=== PATIENT | male | born 1940 | race Caucasian/White ===

== ENCOUNTER 2016-08-06 07:48 | Inpatient (IN) | payer MEDICARE ==
[2016-08-06] MEDS ORDERED: METHYLPREDNISOLONE INJ 125 MG/2 ML SDV IV ONE (08:36)
--- NOTE | 2016-08-06 08:36 | ER Document Report ---
ED Respiratory Problem - General Mode of Arrival: Ambulatory Information source: Patient TRAVEL OUTSIDE OF THE [place] IN LAST 30 DAYS: No - HPI Patient complains to provider of: Short of breath Associated symptoms: Other - See above <GAMALIEL ROSALES - Last Filed: 08/06/16 12:56> <JOE WOLFF - Last Filed: 08/06/16 15:30> - General Chief Complaint: Shortness Of Breath Stated Complaint: shortness of breath Time Seen by Provider: 08/06/16 08:15 Notes: Patient is a 75 year old male, with a past medical history including COPD and HTN, who presents to the emergency department complaining of shortness of breath onset last week. Patient reports his symptoms began as a runny nose after which he contacted his PCP by phone and was prescribed antibiotics and steroids which he took for 5 days and has been off for about 5 days not but his symptoms have worsened. Patient reports he is on home oxygen as needed, usually when he sleeps. Patient states that he took a breathing treatment this morning as well as his respiratory medicines and Albuterol. Patient reports he does usually have allergy problems but does not take allergy meds. Patient denies fever, nausea, vomiting, diarrhea, and edema. Patient denies any history of cardiac problems and has not had stress test performed. (GAMALIEL ROSALES) - Related Data Allergies/Adverse Reactions: Penicillins Allergy (Unknown, Verified 08/06/16 07:56) Home Medications: Current Home Medications Albuterol Sulfate [Ventolin Hfa] 2 puff IH Q4HP PRN 08/06/16 [History] Amlodipine Besylate [Norvasc 10 mg Tablet] 10 mg PO DAILY 08/06/16 [History] Atorvastatin Calcium [Lipitor 40 mg Tablet] 40 mg PO QHS 08/06/16 [History] Benzonatate [Tessalon Perles 100 mg Capsule] 100 mg PO Q8HP PRN 08/06/16 [ History] Fluticasone/Salmeterol [Advair 250-50 Diskus 14 Dose/Diskus] 1 inh IH Q12 [History] Lisinopril [Prinivil 40 mg Tablet] 40 mg PO QHS 08/06/16 [History] Prednisone [Deltasone 5 mg Tablet] 5 mg PO ASDIR PRN 08/06/16 [History] Tamsulosin HCl [Flomax] 0.4 mg PO DAILY 08/06/16 [History] Tiotropium [place] [Spiriva Handihaler 5 Cap/Kit (18 Mcg/Cap)] 1 cap IH DAILY [History] Past Medical History - General Information source: Patient - Social History Smoking Status: Unknown if Ever Smoked Family History: Reviewed & Not Pertinent Patient has suicidal ideation: No Patient has homicidal ideation: No - Past Medical History Cardiac Medical History: Reports: Hx Hypercholesterolemia, Hx Hypertension Pulmonary Medical History: Reports: Hx Asthma - COPD, Hx COPD <GAMALIEL ROSALES - Last Filed: 08/06/16 12:56> Review of Systems - Review of Systems Constitutional: No symptoms reported. denies: Fever EENT: See HPI, Nose congestion Cardiovascular: No symptoms reported. denies: Edema Respiratory: See HPI, Short of breath Gastrointestinal: No symptoms reported. denies: Diarrhea, Nausea, Vomiting Genitourinary: No symptoms reported Male Genitourinary: No symptoms reported Musculoskeletal: No symptoms reported Skin: No symptoms reported Hematologic/Lymphatic: No symptoms reported Neurological/Psychological: No symptoms reported -: Yes All other systems reviewed and negative <GAMALIEL ROSALES - Last Filed: 08/06/16 12:56> Physical Exam - Vital signs Interpretation: Normal - General General appearance: Alert - HEENT Head: Normocephalic, Atraumatic - Respiratory Respiratory status: No respiratory distress Chest status: Nontender Breath sounds: Wheezing - bilateral bases, Other - tight Chest palpation: Normal - Cardiovascular Rhythm: Regular Heart sounds: Normal auscultation Murmur: No Pulses: Normal: Brachial - Back Back: Normal, Nontender - Extremities General upper extremity: Normal inspection General lower extremity: Normal inspection - Neurological Neuro grossly intact: Yes Cognition: Normal Orientation: AAOx4 Mark Coma Scale Eye Opening: Spontaneous Mark Coma Scale Verbal: Oriented [place] Coma Scale Motor: Obeys Commands Mark Coma Scale Total: 15 Speech: Normal - Psychological Associated symptoms: Normal affect, Normal mood - Skin Skin Temperature: Warm Skin Moisture: Dry Skin Color: Normal <GAMALIEL ROSALES - Last Filed: 08/06/16 12:56> Course - Laboratory Result Diagrams: 08/06/16 08:30 08/06/16 08:30 - Consults Dr. Rdz Time consulted: 12:35 - Will admit <GAMALIEL ROSALES - Last Filed: 08/06/16 12:56> - Laboratory Result Diagrams: 08/06/16 08:30 08/06/16 08:30 <JOE WOLFF - Last Filed: 08/06/16 15:30> - Re-evaluation Re-evalutation: 08/06/16 12:03 Patient with history of COPD and asthma presents emergency department 1 week history of increased cough wheezing and difficulty breathing. They called Dr. 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 He feels like he needs to cough something up but is unable to. He is also had a lot of sinus congestion drainage down the back of his throat and a dry hacking cough. He denies any known history of heart attack PE dissection or aneurysm. Also states that allergies are bothering him currently. States that he has not oxygen as needed constantly at night. On examination he is awake alert he is not hypoxic on room air is 94-95 % no acute respiratory distress he is very tight with expiratory wheezes. Chest x-ray is negative EKG is stable negative acute labs and cardiac enzymes other than white count elevation which I believe is due to the steroids that the patient has been taking. Given albuterol Atrovent IV Solu-Medrol and 2 g of magnesium. Reassess at the bedside he says he feels 100% better and wants to go home. He is not hypoxic is not in any respiratory distress. From a follow-up with Dr. Green on Monday primary care physician in 2-3 days and discussed reasons for ED return sooner I personally performed the services described in the documentation, reviewed and edited the documentation which was dictated to my scribe in my presence, and accurately records my words and actions. 08/06/16 12:38 Patient was getting ready to be discharged to go the bathroom and increasing shortness of breath and wheezing again at this point I contacted the hospitalist who is going to admit the patient to the hospital for COPD asthma exacerbation likely inpatient consultation of Dr. Green pulmonology. (JOE WOLFF) - Vital Signs Vital signs: Temp Pulse Resp BP Pulse Ox 98.8 F 110 H 25 H 125/56 L 91 L 08/06/16 12:15 08/06/16 07:53 08/06/16 12:14 08/06/16 12:14 08/06/16 12:14 - Laboratory Laboratory results interpreted by me: 08/06/16 08/06/16 08/06/16 08:30 08:30 09:45 WBC 20.6 H RDW 14.2 H Seg Neuts % (Manual) 83 H Band Neutrophils % 1 L Lymphocytes % (Manual) 9 L Abs Neuts (Manual) 17.3 H ABG pH 7.49 H ABG pO2 63.8 L ABG HCO3 28.3 H ABG Total CO2 29.5 H ABG O2 Saturation 93.9 L Sodium 146.2 H BUN 23 H Glucose 115 H - EKG Interpretation by Me Additional EKG results interpreted by me: 08/06/16 12:05 EKG interpreted by myself to reveal sinus tachycardia at [address] segment elevation or depression (JOE WOLFF) Critical Care Note - Critical Care Note Total time excluding time spent on procedures (mins): 55 <JOE WOLFF - Last Filed: 08/06/16 15:30> Discharge <GAMALIEL ROSALES - Last Filed: 08/06/16 12:56> - Discharge Admitting Provider: Hospitalist Unit Admitted: Medical Floor <JOE WOLFF - Last Filed: 08/06/16 15:30> - Discharge Clinical Impression: COPD exacerbation, Asthma exacerbation Condition: Stable Disposition: HOME, SELF-CARE Scribe Attestation: 08/06/16 12:02 I personally performed the services described in the documentation reviewed the documentation recorded by my scribe in my presence and it accurately and completely records my words and actions (JOE WOLFF) Scribe Documentation - Scribe Written by Karen:: karen Stoddard, 08/06/16, 0904 acting as scribe for :: Rashaun <GAMALIEL ROSAELS - Last Filed: 08/06/16 12:56>
[2016-08-06 09:15] LABS: HEMATOCRIT 41.5 % (37.9-51.0); HEMOGLOBIN 13.7 g/dL (13.5-17.0); HGB HCT DIFFERENCE -0.4; MEAN CORPUSCULAR HEMOGLOBIN 28.9 pg (27.0-33.4); MEAN CORPUSCULAR VOLUME 88 fl (80-97); RED BLOOD COUNT 4.74 10^6/uL (4.35-5.55); RED CELL DISTRIBUTION WIDTH 14.2 % (11.5-14.0); WHITE BLOOD COUNT 20.6 10^3/uL (4.0-10.5)
[2016-08-06] MEDS: MAGNESIUM SULFATE/D5W 100 ML IV SCH ×2 (09:22→10:10)
[2016-08-06 09:23] LABS: ANION GAP 14 (5-19); BLOOD UREA NITROGEN 23 mg/dL (7-20); CALCIUM 9.8 mg/dL (8.4-10.2); CARBON DIOXIDE 28 mmol/L (22-30); CHLORIDE 104 mmol/L (98-107); CREATINE KINASE 66 U/L (55-170); CREATININE RESULT 0.98 mg/dL (0.52-1.25); GLUCOSE 115 mg/dL (75-110); POTASSIUM 4.1 mmol/L (3.6-5.0); SODIUM 146.2 mmol/L (137-145)
[2016-08-06 09:35] LABS: BAND NEUTROPHILS % (MANUAL) 1 % (3-5); BASOPHILS % (MANUAL) 0 % (0-2); EOSINOPHILS % (MANUAL) 0 % (0-6); LYMPHOCYTES % (MANUAL) 9 % (13-45); TOTAL CELLS COUNTED 100
[2016-08-06 09:36] LABS: RBC MORPHOLOGY COMMENT NORMO-CYTIC/CHROMIC
[2016-08-06 09:40] LABS: TROPONIN I < 0.012 ng/mL
[2016-08-06] MEDS ORDERED: ALBUTEROL SULFATE 0.083% NEB 2.5 MG/3 ML AMPUL NEB ONE (10:01)
[2016-08-06] MEDS ORDERED: IPRATROPIUM BROMIDE 0.02% NEB 0.5 MG/2.5 ML AMPUL NEB PRN (10:02)
[2016-08-06 10:12] LABS: ARTERIAL BLOOD BASE EXCESS 4.8 mmol/L; ARTERIAL BLOOD O2 SATURATION 93.9 % (94-98)
[2016-08-06] MEDS ORDERED: OXYCODONE-ACETAMINOPHEN 5-325 MG TABLET PO PRN (13:12)
[2016-08-06] MEDS ORDERED: ONDANSETRON HCL INJ/PF 4 MG/2 ML SDV IV PRN (13:12)
[2016-08-06] MEDS ORDERED: MAGNESIUM HYDROXIDE SUSP 30 ML UDCUP PO PRN (13:12)
[2016-08-06] MEDS ORDERED: ACETAMINOPHEN 325 MG TABLET PO PRN (13:12)
--- NOTE | 2016-08-06 13:47 | PDOC H&P ---
History of Present Illness Admission Date/PCP: 08/06/16 13:29 RODRIGUEZ CHAMBERLAIN MD pulm - dr chamberlain Patient complains of: difficulty breathing History of Present Illness: CHARLA LEVY is a 75 year old male presents to the ED from home with 5d hx of worsening dyspnea, nonproductive cough, increasing nasal drainage, sore throat, wheezing and exertional fatigue and dyspnea. He was placed on zpak and predpak 5d but did not feel any better and presented to ED today. he denies chest pain, palpitatoins, swelling of his feet, orthopnea, PND, abd pain, N/v/d , fevers or chills. eval in ED confirms a COPD exac and we were asked to admit for further eval and management. Past Medical History Cardiac Medical History: Reports: Hyperlipidema, Hypertension Denies: Myocardial Infarction Pulmonary Medical History: Reports: Asthma - COPD, Chronic Obstructive Pulmonary Disease (COPD), Pneumonia Neurological Medical History: Denies: Seizures GI Medical History: Denies: Hepatitis, Hiatal Hernia Hematology: Denies: Anemia, Sickle Cell Disease Past Surgical History Past Surgical History: Denies: Pacemaker Social History Information Source: Patient Smoking Status: Former Smoker - quit 7yrs ago Frequency of Alcohol Use: None Hx Recreational Drug Use: No Drugs: None Family History Family History: CAD Parental Family History Reviewed: Yes Children Family History Reviewed: Yes Sibling(s) Family History Reviewed.: Yes Medication/Allergy Home Medications: Albuterol Sulfate [Ventolin Hfa] 2 puff IH Q4HP PRN 08/06/16 Amlodipine Besylate [Norvasc 10 mg Tablet] 10 mg PO DAILY 08/06/16 Atorvastatin Calcium [Lipitor 40 mg Tablet] 40 mg PO QHS 08/06/16 Benzonatate [Tessalon Perles 100 mg Capsule] 100 mg PO Q8HP PRN 08/06/16 Fluticasone/Salmeterol [Advair 250-50 Diskus 14 Dose/Diskus] 1 inh IH Q12 Lisinopril [Prinivil 40 mg Tablet] 40 mg PO QHS 08/06/16 Prednisone [Deltasone 5 mg Tablet] 5 mg PO ASDIR PRN 08/06/16 Tamsulosin HCl [Flomax] 0.4 mg PO DAILY 08/06/16 Tiotropium [place] [Spiriva Handihaler 5 Cap/Kit (18 Mcg/Cap)] 1 cap IH DAILY Allergies/Adverse Reactions: Penicillins Allergy (Unknown, Verified 08/06/16 07:56) Review of Systems Constitutional: ABSENT: chills, fever(s), headache(s), weight gain, weight loss Eyes: ABSENT: visual disturbances Ears: ABSENT: hearing changes Cardiovascular: ABSENT: chest pain, dyspnea on exertion, edema, orthropnea, palpitations Respiratory: PRESENT: as per HPI, cough, dyspnea. ABSENT: hemoptysis, sputum Gastrointestinal: ABSENT: abdominal pain, constipation, diarrhea, hematemesis, hematochezia, nausea, vomiting Genitourinary: ABSENT: dysuria, hematuria Musculoskeletal: ABSENT: joint swelling Integumentary: ABSENT: rash, wounds Neurological: ABSENT: abnormal gait, abnormal speech, confusion, dizziness, focal weakness, syncope Psychiatric: ABSENT: anxiety, depression, homidical ideation, suicidal ideation Endocrine: ABSENT: cold intolerance, heat intolerance, polydipsia, polyuria Hematologic/Lymphatic: ABSENT: easy bleeding, easy bruising Physical Exam Vital Signs: Temp Pulse Resp BP Pulse Ox 98.8 F 110 H 25 H 125/56 L 91 L 08/06/16 12:15 08/06/16 07:53 08/06/16 12:14 08/06/16 12:14 08/06/16 12:14 General appearance: PRESENT: no acute distress, cooperative, well-developed, well-nourished Head exam: PRESENT: atraumatic, normocephalic Eye exam: PRESENT: EOMI. ABSENT: scleral icterus Mouth exam: PRESENT: moist, neck supple Neck exam: ABSENT: JVD, tracheal deviation Respiratory exam: PRESENT: unlabored. ABSENT: accessory muscle use, wheezes - just coarse throughout Cardiovascular exam: PRESENT: RRR. ABSENT: systolic murmur Pulses: PRESENT: normal carotid pulses, normal radial pulses GI/Abdominal exam: PRESENT: normal bowel sounds, soft. ABSENT: guarding, rebound, rigid, tenderness Extremities exam: ABSENT: calf tenderness - no palp cords, joint swelling, pedal edema Musculoskeletal exam: PRESENT: ambulatory, full ROM Neurological exam: PRESENT: alert, awake, oriented to person, oriented to place , oriented to time, oriented to situation Psychiatric exam: PRESENT: appropriate affect, normal mood Skin exam: PRESENT: dry, warm Results Laboratory Results: labs reviewed - leukocytosis and hypoxia noted EKG Comments: sinus tach, no ischemic changes Impressions: Chest X-Ray 08/06/16 08:16 IMPRESSION: COPD. NO ACUTE RADIOGRAPHIC FINDING IN THE CHEST. Status: Imported from PACS Assessment & Plan - Diagnosis (1) Acute bacterial bronchitis Is this a current diagnosis for this admission?: YesPlan: admit for empiric abx (2) COPD exacerbation Is this a current diagnosis for this admission?: YesPlan: systemic steroids and scheduled/prn nebs; supplemental O2 as needed (3) Acute respiratory failure with hypoxia Is this a current diagnosis for this admission?: YesPlan: evidenced by low PaO2 on ABG; as above (4) Sepsis Qualifiers: Sepsis type: sepsis due to unspecified organism Qualified Code(s): A41.9 - Sepsis, unspecified organism Is this a current diagnosis for this admission?: YesPlan: evidence by tachycardia, hypoxia, leukocytosis and source; treat as above (5) HTN (hypertension) Qualifiers: Hypertension type: essential hypertension Qualified Code(s): I10 - Essential (primary) hypertension Is this a current diagnosis for this admission?: YesPlan: resume home regimen - Time Time Spent: 50 to 70 Minutes Medications reviewed and adjusted accordingly: Yes Anticipated discharge: Home Within: within 48 hours - Inpatient Certification Medical Necessity: Failure to Improve With Outpatient Therapy, Significant Comorbidiites Make Outpatient Treatment Too Risky, Need for Nebulizer Therapy and Monitoring of Response, Risk of Complication if Not Cared For in Hospital
[2016-08-06] MEDS: IPRATROPIUM/ALBUTEROL 0.5-2.5 MG/3 ML AMPUL NEB SCH ×2 (14:15→19:31)
[2016-08-06] MEDS ORDERED: TAMSULOSIN HCL 0.4 MG CAP.SR.24H PO ONE (16:00)
[2016-08-06] MEDS ORDERED: AMLODIPINE BESYLATE 10 MG TABLET PO ONE (16:00)
--- NOTE | 2016-08-06 17:48 | EKG REPORT ---
SEVERITY:- ABNORMAL ECG - SINUS TACHYCARDIA ABNRM R PROG, CONSIDER ASMI OR LEAD PLACEMENT : Confirmed by: Slime Fields MD 06-Aug-2016 17:48:06
[2016-08-06] MEDS: FAMOTIDINE 20 MG TABLET PO SCH (23:47)
[2016-08-06] MEDS: ATORVASTATIN CALCIUM 40 MG TABLET PO SCH (23:47)
[2016-08-06] MEDS: LISINOPRIL 10 MG TABLET PO SCH (23:48)
[2016-08-06] MEDS: DOXYCYCLINE HYCLATE 100 MG TABLET PO SCH (23:49)
[2016-08-06] MEDS: METHYLPREDNISOLONE INJ 40 MG/1 ML SDV IV SCH (23:49)
[2016-08-06] MEDS: FLUTICASONE/SALMETEROL DISKUS 250-50 MCG/DOSE IH SCH (23:50)
[2016-08-07 04:56] LABS: HEMATOCRIT 39.8 % (37.9-51.0); HGB HCT DIFFERENCE -0.8; MEAN CORPUSCULAR HEMOGLOBIN 28.9 pg (27.0-33.4); MEAN CORPUSCULAR HGB CONC 32.7 g/dL (32.0-36.0); MEAN CORPUSCULAR VOLUME 89 fl (80-97); WHITE BLOOD COUNT 20.5 10^3/uL (4.0-10.5)
[2016-08-07 05:15] LABS: BAND NEUTROPHILS % (MANUAL) 1 % (3-5); BASOPHILS % (MANUAL) 0 % (0-2); EOSINOPHILS % (MANUAL) 0 % (0-6); LYMPHOCYTES % (MANUAL) 4 % (13-45); TOTAL CELLS COUNTED 100
[2016-08-07 05:18] LABS: ANISOCYTOSIS SLIGHT; OVALOCYTES SLIGHT; POIKILOCYTOSIS SLIGHT
[2016-08-07] MEDS: IPRATROPIUM/ALBUTEROL 0.5-2.5 MG/3 ML AMPUL NEB SCH (08:05)
[2016-08-07] MEDS: METHYLPREDNISOLONE INJ 40 MG/1 ML SDV IV SCH ×2 (09:39→22:42)
[2016-08-07] MEDS: TAMSULOSIN HCL 0.4 MG CAP.SR.24H PO SCH (09:39)
[2016-08-07] MEDS: FLUTICASONE/SALMETEROL DISKUS 250-50 MCG/DOSE IH SCH ×2 (09:39→22:46)
[2016-08-07] MEDS: AMLODIPINE BESYLATE 10 MG TABLET PO SCH (09:40)
[2016-08-07] MEDS: FAMOTIDINE 20 MG TABLET PO SCH ×2 (09:40→22:39)
[2016-08-07] MEDS: GUAIFENESIN 600 MG TABLET.SA PO SCH ×2 (10:31→22:40)
[2016-08-07] MEDS: DOXYCYCLINE HYCLATE 100 MG TABLET PO SCH ×2 (10:31→22:40)
--- NOTE | 2016-08-07 10:52 | PDOC PROGRESS REPORT ---
Subjective Progress Note for:: 08/07/16 Subjective:: reason for visit: f/u COPD exac hospital course: CHARLA LEVY is a 75 year old male presents to the ED from home with 5d hx of worsening dyspnea, nonproductive cough, increasing nasal drainage, sore throat, wheezing and exertional fatigue and dyspnea. He was placed on zpak and predpak 5d but did not feel any better and presented to ED today. he denies chest pain, palpitatoins, swelling of his feet, orthopnea, PND, abd pain, N/v/d, fevers or chills. eval in ED confirms a COPD exac and we were asked to admit for further eval and management. some improvement with tx but not back to baseline, still extremely SOA with minimal exertion, non productive cough. ROS: denies chest pain, palpitations, N/V/D, DANIEL,dizziness, total 10 systems reviewed and remaining systems negative Physical Exam Vital Signs: Temp Pulse Resp BP Pulse Ox 97.9 F 75 18 149/70 H 92 08/07/16 07:42 08/07/16 08:05 08/07/16 08:05 08/07/16 07:42 08/07/16 08:05 Intake & Output 08/06/16 08/07/16 08/08/16 06:59 06:59 06:59 Intake Total 248 Output Total 800 Balance -552 Weight 84.4 kg General appearance: PRESENT: no acute distress, well-developed, well-nourished Head exam: PRESENT: atraumatic, normocephalic Eye exam: ABSENT: conjunctival injection, scleral icterus Mouth exam: PRESENT: moist, neck supple Neck exam: PRESENT: full ROM. ABSENT: JVD Respiratory exam: PRESENT: crackles, rhonchi, wheezes. ABSENT: accessory muscle use, unlabored Cardiovascular exam: PRESENT: RRR. ABSENT: systolic murmur Pulses: PRESENT: normal radial pulses Vascular exam: PRESENT: normal capillary refill GI/Abdominal exam: PRESENT: normal bowel sounds, soft. ABSENT: tenderness Extremities exam: ABSENT: calf tenderness, pedal edema Musculoskeletal exam: PRESENT: ambulatory, full ROM Neurological exam: PRESENT: alert, awake, oriented to person, oriented to place , oriented to time, oriented to situation Psychiatric exam: PRESENT: appropriate affect, normal mood Results Laboratory Results: 08/07/16 03:53 08/07/16 03:53 WBC 20.5 H RBC 4.50 Hgb 13.0 L Hct 39.8 MCV 89 MCH 28.9 MCHC 32.7 RDW 14.0 Plt Count 239 Seg Neutrophils % Not Reportable Lymphocytes % Not Reportable Monocytes % Not Reportable Eosinophils % Not Reportable Basophils % Not Reportable Absolute Neutrophils Not Reportable Absolute Lymphocytes Not Reportable Absolute Monocytes Not Reportable Absolute Eosinophils Not Reportable Absolute Basophils Not Reportable Assessment & Plan - Diagnosis (1) Acute bacterial bronchitis Is this a current diagnosis for this admission?: YesPlan: improved but not back to baseline, continue empiric abx (2) COPD exacerbation Is this a current diagnosis for this admission?: YesPlan: unchanged; continue systemic steroids, encouraged to increase activity. add flutter valve and mucolytic and monitor for response (3) Acute respiratory failure with hypoxia Is this a current diagnosis for this admission?: YesPlan: improved but not back to baseline. as above (4) Sepsis Qualifiers: Sepsis type: sepsis due to unspecified organism Qualified Code(s): A41.9 - Sepsis, unspecified organism Is this a current diagnosis for this admission?: YesPlan: unchanged; evidence by tachycardia, hypoxia, leukocytosis and source; treat as above (5) HTN (hypertension) Qualifiers: Hypertension type: essential hypertension Qualified Code(s): I10 - Essential (primary) hypertension Is this a current diagnosis for this admission?: Yes - Time Time Spent with patient: 25-34 minutes Medications reviewed and adjusted accordingly: Yes Anticipated discharge: Home Within: within 48 hours
[2016-08-07] MEDS: ALBUTEROL SULFATE 0.083% NEB 2.5 MG/3 ML AMPUL NEB PRN ×2 (14:06→20:01)
[2016-08-07] MEDS: ATORVASTATIN CALCIUM 40 MG TABLET PO SCH (22:39)
[2016-08-07] MEDS: LISINOPRIL 10 MG TABLET PO SCH (22:40)
[2016-08-08] MEDS: ALBUTEROL SULFATE 0.083% NEB 2.5 MG/3 ML AMPUL NEB PRN ×3 (06:35→20:21)
[2016-08-08] MEDS ORDERED: ONDANSETRON HCL INJ/PF 4 MG/2 ML SDV IV PRN (09:00)
[2016-08-08] MEDS: AMLODIPINE BESYLATE 10 MG TABLET PO SCH (09:27)
[2016-08-08] MEDS: TAMSULOSIN HCL 0.4 MG CAP.SR.24H PO SCH (09:27)
[2016-08-08] MEDS: FAMOTIDINE 20 MG TABLET PO SCH ×2 (09:28→23:01)
[2016-08-08] MEDS: GUAIFENESIN 600 MG TABLET.SA PO SCH ×2 (09:28→23:01)
[2016-08-08] MEDS: METHYLPREDNISOLONE INJ 40 MG/1 ML SDV IV SCH ×2 (09:28→23:06)
[2016-08-08] MEDS: DOXYCYCLINE HYCLATE 100 MG TABLET PO SCH (09:29)
[2016-08-08] MEDS: FLUTICASONE/SALMETEROL DISKUS 250-50 MCG/DOSE IH SCH ×2 (09:29→23:04)
[2016-08-08] MEDS ORDERED: LEVOFLOXACIN 750 MG/D5W RTU 750 MG/150 ML RTUPB IV ONE (11:00)
--- NOTE | 2016-08-08 11:25 | PDOC PROGRESS REPORT ---
Subjective Progress Note for:: 08/08/16 Subjective:: reason for visit: f/u COPD exac hospital course: CHARLA LEVY is a 75 year old male presents to the ED from home with 5d hx of worsening dyspnea, nonproductive cough, increasing nasal drainage, sore throat, wheezing and exertional fatigue and dyspnea. He was placed on zpak and predpak 5d but did not feel any better and presented to ED today. he denies chest pain, palpitatoins, swelling of his feet, orthopnea, PND, abd pain, N/v/d, fevers or chills. eval in ED confirms a COPD exac and we were asked to admit for further eval and management. some improvement with tx but not back to baseline, still extremely SOA with minimal exertion, non productive cough. chg'd doxy to [facility] Monday due to failure to improve. ROS: denies chest pain, palpitations, N/V/D, DANIEL,dizziness, total 10 systems reviewed and remaining systems negative Physical Exam Vital Signs: Temp Pulse Resp BP Pulse Ox 98 F 72 20 130/84 H 100 08/08/16 04:00 08/08/16 06:35 08/08/16 06:35 08/08/16 04:00 08/08/16 04:00 Intake & Output 08/07/16 08/08/16 08/09/16 06:59 06:59 06:59 Intake Total 248 1108 Output Total 800 650 Balance -552 458 Weight 84.4 kg 84.4 kg General appearance: PRESENT: no acute distress, well-developed, well-nourished Head exam: PRESENT: atraumatic, normocephalic Eye exam: ABSENT: conjunctival injection, scleral icterus Mouth exam: PRESENT: moist, neck supple Neck exam: PRESENT: full ROM. ABSENT: JVD Respiratory exam: PRESENT: accessory muscle use - intercostal muscles, rhonchi, wheezes - diffuse exp at post apices most notably Cardiovascular exam: PRESENT: RRR. ABSENT: systolic murmur Pulses: PRESENT: normal radial pulses, normal dorsalis pedis pul GI/Abdominal exam: PRESENT: normal bowel sounds, soft. ABSENT: tenderness Extremities exam: ABSENT: calf tenderness, pedal edema Neurological exam: PRESENT: alert, awake, oriented to person, oriented to place , oriented to time Psychiatric exam: PRESENT: appropriate affect, normal mood Skin exam: PRESENT: warm. ABSENT: dry Results Laboratory Results: 08/07/16 03:53 Impressions: Chest X-Ray 08/06/16 08:16 IMPRESSION: COPD. NO ACUTE RADIOGRAPHIC FINDING IN THE CHEST. Assessment & Plan - Diagnosis (1) Acute bacterial bronchitis Is this a current diagnosis for this admission?: YesPlan: improved but not back to baseline, change empiric abx to IV levaquin due to failure to progress (2) COPD exacerbation Is this a current diagnosis for this admission?: YesPlan: unchanged; continue systemic steroids, encouraged to increase activity. continue flutter valve and mucolytic and monitor for response (3) Acute respiratory failure with hypoxia Is this a current diagnosis for this admission?: YesPlan: improved but not back to baseline, still desats with minimal exertion, still has severe exertional dyspnea affecting ADLs. as above (4) Sepsis Qualifiers: Sepsis type: sepsis due to unspecified organism Qualified Code(s): A41.9 - Sepsis, unspecified organism Is this a current diagnosis for this admission?: YesPlan: unchanged; evidence by tachycardia, hypoxia, leukocytosis and source; treat as above (5) HTN (hypertension) Qualifiers: Hypertension type: essential hypertension Qualified Code(s): I10 - Essential (primary) hypertension Is this a current diagnosis for this admission?: YesPlan: stable; continue home regimen - Time Time Spent with patient: 25-34 minutes Anticipated discharge: Home Within: within 48 hours - chg abx and hopefully he will begin to turn around
[2016-08-08] MEDS: ATORVASTATIN CALCIUM 40 MG TABLET PO SCH (23:00)
[2016-08-08] MEDS: LISINOPRIL 10 MG TABLET PO SCH (23:02)
[2016-08-09 04:49] LABS: HEMATOCRIT 38.9 % (37.9-51.0); HEMOGLOBIN 12.9 g/dL (13.5-17.0); HGB HCT DIFFERENCE -0.2; MEAN CORPUSCULAR HEMOGLOBIN 29.2 pg (27.0-33.4); MEAN CORPUSCULAR HGB CONC 33.2 g/dL (32.0-36.0); MEAN CORPUSCULAR VOLUME 88 fl (80-97); RED BLOOD COUNT 4.42 10^6/uL (4.35-5.55); RED CELL DISTRIBUTION WIDTH 13.8 % (11.5-14.0); WHITE BLOOD COUNT 19.2 10^3/uL (4.0-10.5)
[2016-08-09 05:06] LABS: ANION GAP 10 (5-19); BLOOD UREA NITROGEN 37 mg/dL (7-20); CALCIUM 9.8 mg/dL (8.4-10.2); CARBON DIOXIDE 24 mmol/L (22-30); CHLORIDE 104 mmol/L (98-107); CREATININE RESULT 1.19 mg/dL (0.52-1.25); GLUCOSE 169 mg/dL (75-110); POTASSIUM 5.4 mmol/L (3.6-5.0); SODIUM 137.7 mmol/L (137-145)
[2016-08-09 05:25] LABS: BASOPHILS % (MANUAL) 0 % (0-2); EOSINOPHILS % (MANUAL) 0 % (0-6); LYMPHOCYTES % (MANUAL) 2 % (13-45); TOTAL CELLS COUNTED 100
[2016-08-09 05:27] LABS: OVALOCYTES SLIGHT; PLATELET CLUMPS PRESENT; POIKILOCYTOSIS SLIGHT
[2016-08-09] MEDS: ALBUTEROL SULFATE 0.083% NEB 2.5 MG/3 ML AMPUL NEB PRN ×3 (08:18→19:47)
[2016-08-09] MEDS: TAMSULOSIN HCL 0.4 MG CAP.SR.24H PO SCH (09:41)
[2016-08-09] MEDS: GUAIFENESIN 600 MG TABLET.SA PO SCH ×2 (09:41→21:14)
[2016-08-09] MEDS: AMLODIPINE BESYLATE 10 MG TABLET PO SCH (09:41)
[2016-08-09] MEDS: FAMOTIDINE 20 MG TABLET PO SCH ×2 (09:41→21:14)
[2016-08-09] MEDS: METHYLPREDNISOLONE INJ 40 MG/1 ML SDV IV SCH (09:44)
[2016-08-09] MEDS: FLUTICASONE/SALMETEROL DISKUS 250-50 MCG/DOSE IH SCH ×2 (09:44→21:11)
[2016-08-09] MEDS ORDERED: METHYLPREDNISOLONE INJ 40 MG/1 ML SDV IV SCH (11:45)
[2016-08-09] MEDS ORDERED: LEVOFLOXACIN 750 MG/D5W RTU 750 MG/150 ML RTUPB IV ONE (12:30)
[2016-08-09] MEDS ORDERED: LORATADINE 10 MG TABLET PO ONE (13:00)
[2016-08-09] MEDS: METHYLPREDNISOLONE INJ 125 MG/2 ML SDV IV SCH ×2 (14:24→21:11)
--- NOTE | 2016-08-09 16:47 | PDOC PROGRESS REPORT ---
Subjective Progress Note for:: 08/09/16 Subjective:: CHARLA LEVY is a 75 year old male presents to the ED from home with 5d hx of worsening dyspnea, nonproductive cough, increasing nasal drainage, sore throat, wheezing and exertional fatigue and dyspnea. He was placed on zpak and predpak 5d but did not feel any better and presented to ED today. he denies chest pain, palpitatoins, swelling of his feet, orthopnea, PND, abd pain, N/v/d , fevers or chills. eval in ED confirms a COPD exac and we were asked to admit for further eval and management. some improvement with tx but not back to baseline, still extremely SOA with minimal exertion, non productive cough. [facility] 08/08 due to failure to improve. Chief complaint today is persistent wheezing, cough and shortness of breath. He became very dyspneic going to the bathroom. Physical Exam Vital Signs: Temp Pulse Resp BP Pulse Ox 98.0 F 102 H 22 H 150/66 H 94 08/09/16 12:00 08/09/16 14:23 08/09/16 14:23 08/09/16 12:00 08/09/16 14:23 Intake & Output 08/08/16 08/09/16 08/10/16 06:59 06:59 06:59 Intake Total 1108 4036 Output Total 650 1050 Balance 458 2986 Weight 84.4 kg 93 kg Additional comments: General appearance: PRESENT: no acute distress, well-developed, well-nourished Head exam: PRESENT: atraumatic, normocephalic Eye exam: ABSENT: conjunctival injection, scleral icterus Mouth exam: PRESENT: moist, neck supple Neck exam: PRESENT: full ROM. ABSENT: JVD Respiratory exam: PRESENT: accessory muscle use - intercostal muscles, rhonchi, wheezes diffusely bilaterally Cardiovascular exam: PRESENT: RRR. ABSENT: systolic murmur Pulses: PRESENT: normal radial pulses, normal dorsalis pedis pul GI/Abdominal exam: PRESENT: normal bowel sounds, soft. ABSENT: tenderness Extremities exam: ABSENT: calf tenderness, pedal edema Neurological exam: PRESENT: alert, awake, oriented to person, oriented to place , oriented to time Psychiatric exam: PRESENT: appropriate affect, normal mood Skin exam: PRESENT: warm. ABSENT: dry Results Laboratory Results: 08/09/16 04:00 08/09/16 04:00 08/09/16 08/09/16 04:00 04:00 WBC 19.2 H RBC 4.42 Hgb 12.9 L Hct 38.9 MCV 88 MCH 29.2 MCHC 33.2 RDW 13.8 Plt Count 274 Seg Neutrophils % Not Reportable Lymphocytes % Not Reportable Monocytes % Not Reportable Eosinophils % Not Reportable Basophils % Not Reportable Absolute Neutrophils Not Reportable Absolute Lymphocytes Not Reportable Absolute Monocytes Not Reportable Absolute Eosinophils Not Reportable Absolute Basophils Not Reportable Sodium 137.7 Potassium 5.4 H Chloride 104 Carbon Dioxide 24 Anion Gap 10 BUN 37 H Creatinine 1.19 Est GFR ( Amer) > 60 Est GFR (Non-Af Amer) > 60 Glucose 169 H Calcium 9.8 Impressions: Chest X-Ray 08/06/16 08:16 IMPRESSION: COPD. NO ACUTE RADIOGRAPHIC FINDING IN THE CHEST. Assessment & Plan - Diagnosis (1) Acute bacterial bronchitis Is this a current diagnosis for this admission?: YesPlan: Oral doxycycline was changed to intravenous Levaquin on 08/08/2016. Observe on this Rx. (2) COPD exacerbation Is this a current diagnosis for this admission?: YesPlan: Treatment today with nebulized bronchodilators. Will increase Solu-Medrol IV from 40 mg every 12-125 mg every 8 hours. (3) Acute respiratory failure with hypoxia Is this a current diagnosis for this admission?: YesPlan: Supplementation as needed. (4) Sepsis Qualifiers: Sepsis type: sepsis due to unspecified organism Qualified Code(s): A41.9 - Sepsis, unspecified organism Is this a current diagnosis for this admission?: YesPlan: The patient's blood pressure has been stable. He is afebrile. He continues to have a leukocytosis, but of note, he is on steroids. Will monitor his CBC and will check a pro calcitonin. (5) HTN (hypertension) Qualifiers: Hypertension type: essential hypertension Qualified Code(s): I10 - Essential (primary) hypertension Is this a current diagnosis for this admission?: YesPlan: Blood pressure is controlled. Continue current Rx.
[2016-08-09] MEDS ORDERED: IBUPROFEN SUSP 100 MG/5 ML ORAL SYRINGE PO PRN (18:45)
[2016-08-09] MEDS: ATORVASTATIN CALCIUM 40 MG TABLET PO SCH (21:13)
[2016-08-09] MEDS: LISINOPRIL 10 MG TABLET PO SCH (21:14)
[2016-08-10] MEDS: ALBUTEROL SULFATE 0.083% NEB 2.5 MG/3 ML AMPUL NEB PRN ×3 (01:35→19:49)
[2016-08-10 05:21] LABS: HEMOGLOBIN 12.9 g/dL (13.5-17.0); HGB HCT DIFFERENCE -0.3; MEAN CORPUSCULAR HEMOGLOBIN 29.2 pg (27.0-33.4); MEAN CORPUSCULAR HGB CONC 33.2 g/dL (32.0-36.0); MEAN CORPUSCULAR VOLUME 88 fl (80-97); RED BLOOD COUNT 4.43 10^6/uL (4.35-5.55); RED CELL DISTRIBUTION WIDTH 13.7 % (11.5-14.0)
[2016-08-10 05:38] LABS: ANION GAP 10 (5-19); BLOOD UREA NITROGEN 39 mg/dL (7-20); CALCIUM 9.6 mg/dL (8.4-10.2); CARBON DIOXIDE 24 mmol/L (22-30); CHLORIDE 103 mmol/L (98-107); CREATININE RESULT 1.13 mg/dL (0.52-1.25); GLUCOSE 206 mg/dL (75-110); POTASSIUM 5.5 mmol/L (3.6-5.0); SODIUM 137.3 mmol/L (137-145)
[2016-08-10] MEDS: METHYLPREDNISOLONE INJ 125 MG/2 ML SDV IV SCH ×3 (05:38→21:21)
[2016-08-10 05:56] LABS: BASOPHILS % (MANUAL) 0 % (0-2); EOSINOPHILS % (MANUAL) 0 % (0-6); LYMPHOCYTES % (MANUAL) 6 % (13-45); TOTAL CELLS COUNTED 100
[2016-08-10 05:57] LABS: RBC MORPHOLOGY COMMENT NORMO-CYTIC/CHROMIC
[2016-08-10] MEDS: FAMOTIDINE 20 MG TABLET PO SCH ×2 (09:30→21:21)
[2016-08-10] MEDS: TAMSULOSIN HCL 0.4 MG CAP.SR.24H PO SCH (09:30)
[2016-08-10] MEDS: LEVOFLOXACIN 750 MG/D5W RTU 750 MG/150 ML RTUPB IV SCH (09:30)
[2016-08-10] MEDS: AMLODIPINE BESYLATE 10 MG TABLET PO SCH (09:30)
[2016-08-10] MEDS: LORATADINE 10 MG TABLET PO SCH (09:30)
[2016-08-10] MEDS: GUAIFENESIN 600 MG TABLET.SA PO SCH ×2 (09:30→21:21)
[2016-08-10] MEDS: FLUTICASONE/SALMETEROL DISKUS 250-50 MCG/DOSE IH SCH ×2 (09:31→21:21)
[2016-08-10] MEDS ORDERED: IBUPROFEN SUSP 20 MG/1 ML 118 ML PO PRN (13:20)
--- NOTE | 2016-08-10 14:36 | PDOC PROGRESS REPORT ---
Subjective Progress Note for:: 08/10/16 Subjective:: CHARLA LEVY is a 75 year old male presents to the ED from home with 5d hx of worsening dyspnea, nonproductive cough, increasing nasal drainage, sore throat, wheezing and exertional fatigue and dyspnea. He was placed on zpak and predpak 5d but did not feel any better and presented to ED today. he denies chest pain, palpitatoins, swelling of his feet, orthopnea, PND, abd pain, N/v/d , fevers or chills. Eval in ED confirms a COPD exac and we were asked to admit for further eval and management. Now showing improvement with tx but not back to baseline, still SOA with minimal exertion, cough now finally with some production. chg'd doxy to levaquin Tuesday 08/08 due to failure to improve. Now WBC is down, even with an increase in steroid Rx. Chief complaint today is persistent wheezing, cough and shortness of breath. Physical Exam Vital Signs: Temp Pulse Resp BP Pulse Ox 97.5 F 94 19 160/90 H 96 08/10/16 11:55 08/10/16 11:55 08/10/16 11:55 08/10/16 11:55 08/10/16 11:55 Intake & Output 08/09/16 08/10/16 08/11/16 06:59 06:59 06:59 Intake Total 4036 1346 Output Total 1050 2300 Balance 2986 -954 Weight 93 kg 93 kg Additional comments: General appearance: PRESENT: no acute distress, well-developed, well-nourished Head exam: PRESENT: atraumatic, normocephalic Eye exam: ABSENT: conjunctival injection, scleral icterus Mouth exam: PRESENT: moist, neck supple Neck exam: PRESENT: full ROM. ABSENT: JVD Respiratory exam: PRESENT: rhonchi, wheezes diffusely bilaterally, slightly improved air movement Cardiovascular exam: PRESENT: RRR. ABSENT: systolic murmur Pulses: PRESENT: normal radial pulses, normal dorsalis pedis pul GI/Abdominal exam: PRESENT: normal bowel sounds, soft. ABSENT: tenderness Extremities exam: ABSENT: calf tenderness, pedal edema Neurological exam: PRESENT: alert, awake, oriented to person, oriented to place , oriented to time Psychiatric exam: PRESENT: appropriate affect, normal mood Skin exam: PRESENT: warm. ABSENT: dry Results Laboratory Results: 08/10/16 04:16 08/10/16 04:16 08/10/16 08/10/16 04:16 04:16 WBC 15.0 H RBC 4.43 Hgb 12.9 L Hct 39.0 MCV 88 MCH 29.2 MCHC 33.2 RDW 13.7 Plt Count 247 Seg Neutrophils % Not Reportable Lymphocytes % Not Reportable Monocytes % Not Reportable Eosinophils % Not Reportable Basophils % Not Reportable Absolute Neutrophils Not Reportable Absolute Lymphocytes Not Reportable Absolute Monocytes Not Reportable Absolute Eosinophils Not Reportable Absolute Basophils Not Reportable Sodium 137.3 Potassium 5.5 H Chloride 103 Carbon Dioxide 24 Anion Gap 10 BUN 39 H Creatinine 1.13 Est GFR ( Amer) > 60 Est GFR (Non-Af Amer) > 60 Glucose 206 H Calcium 9.6 Impressions: Chest X-Ray 08/06/16 08:16 IMPRESSION: COPD. NO ACUTE RADIOGRAPHIC FINDING IN THE CHEST. Assessment & Plan - Diagnosis (1) Acute bacterial bronchitis Is this a current diagnosis for this admission?: YesPlan: Oral doxycycline was changed to intravenous Levaquin on 08/08/2016. Continue and observe on this IV Rx. (2) COPD exacerbation Is this a current diagnosis for this admission?: YesPlan: Continue Rx with nebulized bronchodilators and IV Solumedrol 125 mg Q8hrs. (3) Acute respiratory failure with hypoxia Is this a current diagnosis for this admission?: YesPlan: O2 supplementation as needed. (4) Sepsis Qualifiers: Sepsis type: sepsis due to unspecified organism Qualified Code(s): A41.9 - Sepsis, unspecified organism Is this a current diagnosis for this admission?: YesPlan: The patient's blood pressure has been stable. He is afebrile. He continues to have a leukocytosis, but it is coming down despite use of steroids. Will continue to monitor his CBC. Sepsis has essentially resolved. (5) HTN (hypertension) Qualifiers: Hypertension type: essential hypertension Qualified Code(s): I10 - Essential (primary) hypertension Is this a current diagnosis for this admission?: YesPlan: Blood pressure is controlled. Continue current Rx.
[2016-08-10] MEDS: LISINOPRIL 10 MG TABLET PO SCH (21:21)
[2016-08-10] MEDS: ATORVASTATIN CALCIUM 40 MG TABLET PO SCH (21:21)
[2016-08-11 05:08] LABS: HEMATOCRIT 38.9 % (37.9-51.0); HGB HCT DIFFERENCE 0.1; MEAN CORPUSCULAR HEMOGLOBIN 29.1 pg (27.0-33.4); MEAN CORPUSCULAR HGB CONC 33.3 g/dL (32.0-36.0); MEAN CORPUSCULAR VOLUME 87 fl (80-97); RED BLOOD COUNT 4.45 10^6/uL (4.35-5.55); RED CELL DISTRIBUTION WIDTH 13.6 % (11.5-14.0); WHITE BLOOD COUNT 16.8 10^3/uL (4.0-10.5)
[2016-08-11] MEDS: METHYLPREDNISOLONE INJ 125 MG/2 ML SDV IV SCH (05:41)
[2016-08-11 07:12] LABS: ANISOCYTOSIS SLIGHT; BASOPHILS % (MANUAL) 0 % (0-2); EOSINOPHILS % (MANUAL) 0 % (0-6); LYMPHOCYTES % (MANUAL) 6 % (13-45); POIKILOCYTOSIS SLIGHT; TOTAL CELLS COUNTED 100
[2016-08-11 07:13] LABS: OVALOCYTES SLIGHT
[2016-08-11] MEDS: GUAIFENESIN 600 MG TABLET.SA PO SCH (09:58)
[2016-08-11] MEDS: FAMOTIDINE 20 MG TABLET PO SCH (09:58)
[2016-08-11] MEDS: LORATADINE 10 MG TABLET PO SCH (09:58)
[2016-08-11] MEDS: TAMSULOSIN HCL 0.4 MG CAP.SR.24H PO SCH (09:58)
[2016-08-11] MEDS: AMLODIPINE BESYLATE 10 MG TABLET PO SCH (09:58)
[2016-08-11] MEDS: FLUTICASONE/SALMETEROL DISKUS 250-50 MCG/DOSE IH SCH (09:59)
[2016-08-11] MEDS: LEVOFLOXACIN 750 MG/D5W RTU 750 MG/150 ML RTUPB IV SCH (09:59)
[2016-08-11 11:12] VITALS: BP 153/68
--- NOTE | 2016-08-11 12:06 | PDOC DISCHARGE SUMMARY ---
General - Admit/Disc Date/PCP Admission Date/Primary Care Provider: 08/06/16 13:12 RODRIGUEZ SÁNCHEZ MD Discharge Date: 08/11/16 - Discharge Diagnosis (1) Acute bacterial bronchitis Is this a current diagnosis for this admission?: YesSummary: The patient was admitted with an acute exacerbation of COPD. He was felt to have an acute associated bacterial bronchitis. He was treated initially with doxycycline but failed to respond. 08/08/2016 that this was changed to intravenous Levaquin. After that he had significant improvement in his leukocytosis and general clinical status. He will be discharged with an additional 10 days of oral Levaquin 750 mg daily. (2) COPD exacerbation Is this a current diagnosis for this admission?: YesSummary: The acute exacerbation of COPD was otherwise treated in typical fashion. In addition to the antibiotics, the patient received nebulized bronchodilators and intravenous corticosteroids. Also found benefit from guaifenesin. With these treatments, he steadily improved. (3) Acute respiratory failure with hypoxia Is this a current diagnosis for this admission?: YesSummary: The patient had mild acute hypoxemic respiratory failure associated with his exacerbation of COPD. As the exacerbation improved so did the hypoxemia. The time of discharge, the patient is on room air and tolerating ambulation around the room. (4) Sepsis Is this a current diagnosis for this admission?: YesSummary: The patient ruled in for sepsis based on fever leukocytosis mild hypotension on admission. This rapidly corrected with treatments as above. (5) HTN (hypertension) Is this a current diagnosis for this admission?: YesSummary: After admission, blood pressure rapidly stabilized and remained in an acceptable range for the bulk of the hospitalization. - Additional Information Resuscitation Status: Full Code Discharge Diet: Regular Discharge Activity: Activity As Tolerated, Balance Activity w/Rest Home Medications: Albuterol Sulfate [Ventolin Hfa] 2 puff IH Q4HP PRN 08/06/16 Amlodipine Besylate [Norvasc 10 mg Tablet] 10 mg PO DAILY 08/06/16 Atorvastatin Calcium [Lipitor 40 mg Tablet] 40 mg PO QHS 08/06/16 Benzonatate [Tessalon Perles 100 mg Capsule] 100 mg PO Q8HP PRN 08/06/16 Fluticasone/Salmeterol [Advair 250-50 Diskus 14 Dose/Diskus] 1 inh IH Q12 Lisinopril [Prinivil 40 mg Tablet] 40 mg PO QHS 08/06/16 Tamsulosin HCl [Flomax] 0.4 mg PO DAILY 08/06/16 Tiotropium [place] [Spiriva Handihaler 5 Cap/Kit (18 Mcg/Cap)] 1 cap IH DAILY Guaifenesin [Mucinex Sr 600 mg Tablet.sa] 1,200 mg PO Q12 #0 tablet.sa 08/11/16 Levofloxacin [Levaquin 750 mg Tablet] 750 mg PO DAILY #10 tab 08/11/16 Loratadine [Claritin 10 mg Tablet] 10 mg PO DAILY #0 tablet 08/11/16 Methylprednisolone [Medrol Dosepack (4 mg/Tab) 21 Tab/Dosepak] 21 tab PO ASDIR # 1 dspk 08/11/16 History of Present Illness History of Present Illness: CHARLA LEVY is a 75 year old male who presented to the ED on 08/06/2016 from home with 5d hx of worsening dyspnea, nonproductive cough, increasing nasal drainage, sore throat, wheezing and exertional fatigue and dyspnea. He was placed on zpak and predpak as an outpatient for 5d but did not feel any better and presented to the ED today. He denied chest pain, palpitations, swelling of his feet, orthopnea, PND, abd pain, N/v/d, fevers or chills. Eval in ED confirms a COPD exac and we were asked to admit for further eval and management. Hospital Course Hospital Course: The patient was treated in typical fashion for his acute exacerbation of COPD. He received IV fluids, antibiotics, nebulized bronchodilators, intravenous corticosteroids. Gradually improved. On the day of discharge he is breathing much better, not requiring supplemental oxygen, and easily ambulates about the room. Physical Exam Vital Signs: Temp Pulse Resp BP Pulse Ox 97.7 F 99 15 149/60 H 95 08/11/16 11:01 08/11/16 11:01 08/11/16 11:01 08/11/16 11:01 08/11/16 11:01 Intake & Output 08/10/16 08/11/16 08/12/16 06:59 06:59 06:59 Intake Total 1346 1610 Output Total 2300 3100 Balance -954 -1490 Weight 93 kg 92.3 kg Additional comments: General appearance: PRESENT: no acute distress, well-developed, well-nourished Head exam: PRESENT: atraumatic, normocephalic Eye exam: ABSENT: conjunctival injection, scleral icterus Mouth exam: PRESENT: moist, neck supple Neck exam: PRESENT: full ROM. ABSENT: JVD Respiratory exam: PRESENT: air movement much improved, mild-mod forced expiratory wheezes, no rhonchi Cardiovascular exam: PRESENT: RRR. ABSENT: systolic murmur Pulses: PRESENT: normal radial pulses, normal dorsalis pedis pul GI/Abdominal exam: PRESENT: normal bowel sounds, soft. ABSENT: tenderness Extremities exam: ABSENT: calf tenderness, pedal edema Neurological exam: PRESENT: alert, awake, oriented to person, oriented to place , oriented to time Psychiatric exam: PRESENT: appropriate affect, normal mood Skin exam: PRESENT: warm. ABSENT: dry Results Laboratory Results: 08/11/16 04:18 08/10/16 04:16 08/11/16 04:18 WBC 16.8 H RBC 4.45 Hgb 13.0 L Hct 38.9 MCV 87 MCH 29.1 MCHC 33.3 RDW 13.6 Plt Count 288 Seg Neutrophils % Not Reportable Lymphocytes % Not Reportable Monocytes % Not Reportable Eosinophils % Not Reportable Basophils % Not Reportable Absolute Neutrophils Not Reportable Absolute Lymphocytes Not Reportable Absolute Monocytes Not Reportable Absolute Eosinophils Not Reportable Absolute Basophils Not Reportable Impressions: Chest X-Ray 08/06/16 08:16 IMPRESSION: COPD. NO ACUTE RADIOGRAPHIC FINDING IN THE CHEST. Qualifiers PATEINT BEING DISCHARGED WITH ANY OF THE FOLLOWING DIAGNOSIS?: No Plan Discharge Plan: Patient is discharged home. We will continue oral Levaquin 750 mg daily for 10 days, and complete a Medrol Dosepak, and use the nebulized bronchodilators that he has at home. We will continue guaifenesin for now. He will resume his other home medications. He will follow-up with his primary care physician and with his regulatory affairs coordinator, Dr. Green. Time Spent: Less than 30 Minutes
== END 2016-08-11 12:03 | disposition home or self-care (01) | DRG 871 ==
LOC: ER 07:48 → 4N 13:12 → UNDOADMIN 13:29 → EH 13:29 → 4N 15:26 → EH 15:26
DX: A41.9 Sepsis, unspecified organism (principal); J96.01 Acute respiratory failure with hypoxia; J44.0 Chronic obstructive pulmonary disease with (acute) lower respiratory infection; J44.1 Chronic obstructive pulmonary disease with (acute) exacerbation; J20.9 Acute bronchitis, unspecified; I10 Essential (primary) hypertension; Z88.0 Allergy status to penicillin; Z79.51 Long term (current) use of inhaled steroids; Z79.52 Long term (current) use of systemic steroids; Z79.899 Other long term (current) drug therapy; Z87.891 Personal history of nicotine dependence
CPT/HCPCS: 36415; 36600; 71010; 80048; 82550; 82803; 83880; 84484; 85025; 93005; 93010; 94640; 94667; 94668; 96365; 96366; 96375; 99291; J1956; J2920; J2930; J3475; J3490; J7620

== ENCOUNTER → 2016-09-30 | Outpatient (CLI) | payer MEDICARE ==
--- NOTE | 2016-09-30 10:43 | RADIOLOGY REPORT (SQ) ---
EXAM DESCRIPTION: CT CHEST WITHOUT COMPLETED DATE/TIME: 09/30/2016 10:13 am REASON FOR STUDY: SOLITARY PULMONARY NODULE (R91.1) R91.1 SOLITARY PULMONARY NODULE COMPARISON: July 2015 TECHNIQUE: CT scan performed of the chest without intravenous contrast. Images reviewed with lung, soft tissue and bone windows. Reconstructed coronal and sagittal MPR images reviewed. All images st ored on PACS. All CT scanners at this facility use dose modulation, iterative reconstruction, and/or weight based d osing when appropriate to reduce radiation dose to as low as reasonably achievable (ALARA). [facility]: Dose Right [facility]: CareDose [facility]: Dose Right [facility]: Teradose 4D [facility]: [place] RADIATION DOSE: Up-to-date CT equipment and radiation dose reduction techniques were employed. CTDIv ol: 9.7 mGy. DLP: 450 mGy-cm. mGy. LIMITATIONS: No technical limitations. FINDINGS: LUNGS AND PLEURA: The previously described extensive emphysematous changes with multifocal areas of pleural and parenchymal scarring and associated extensive bullous changes are again identif ied and appears stable. The previously described nodular focus in the right lung apex measures sligh tly decreased in size on the current study measuring 9 mm in diameter as compared to 11.1 mm on the p revious study. The previously described pulmonary nodule in the anterior segment of the right upper lobe measures slightly larger on the current study measuring 8.6 mm on the current study compared to 7.5 mm on the previous study. This nodule is best seen on image number 68 of series 4. On the curre nt study there is a somewhat irregular area of consolidation in the lingula of the left upper lobe ex tending from images 76-90 on series 4. This was not present on the previous study and could represen t a focal pneumonic infiltrate or atelectatic changes superimposed on underlying chronic changes. Fu rther followup is recommended to exclude an underlying process. HILAR AND MEDIASTINAL STRUCTURES: No identified masses or abnormal nodes. No obvious aneurysm. The previously described vascular calcifications appears stable. HEART AND VASCULAR STRUCTURES: No aneurysm. No pericardial effusion. UPPER ABDOMEN: No significant findings. Limited exam. The previously described relative low density right adrenal nodule appears stable. THYROID AND OTHER SOFT TISSUES: No masses. No adenopathy. BONES: No significant finding. HARDWARE: None in the chest. OTHER: No other significant findings. IMPRESSION: Extensive chronic appearing changes as noted above which appears stable. The previously described right upper lobe pulmonary nodule in the anterior segment of the right upper lobe measures slightly larger on the current study measuring 8.6 mm in diameter. Followup recommendations are as noted below. On the current study there is a somewhat irregular area of consolidation in the lingula of the left upper lobe as noted above and further followup is recommended to exclude an underlying p rocess. Other findings as noted above COMMENT: FLEISCHNER CRITERIA FOR FOLLOW-UP OF PULMONARY NODULES Incidentally detected new nodules in persons 35 or older. HIGH RISK: History of smoking or other known risk factors. >8mm single solid nodule: LOW and HIGH RISK: consider CT, PET/CT or biopsy at 3 mo. TECHNICAL DOCUMENTATION: JOB ID: [id number] Quality ID # [id number]: Final reports with documentation of one or more dose reduction techniques (e.g., Au tomated exposure control, adjustment of the mA and/or kV according to patient size, use of iterative reconstruction technique) 2010 [employer]- All Rights Reserved
== END ==
LOC: RAD 09:38
PROVIDERS: ATTEND Internal Medicine Pulmonary Disease
DX: R91.1 Solitary pulmonary nodule (principal)
CPT/HCPCS: 71250

== ENCOUNTER → 2016-10-21 | Outpatient (CLI) | payer MEDICARE ==
--- NOTE | 2016-10-23 10:58 | RADIOLOGY REPORT (SQ) ---
EXAM DESCRIPTION: PET CT SKULL/THIGH COMPLETED DATE/TIME: 10/21/2016 12:43 pm REASON FOR STUDY: PULMONARY NODULE (R91.1) R91.1 SOLITARY PULMONARY NODULE COMPARISON: None. RADIONUCLIDE AND DOSE: 12.0 mCi F18 FDG The route of agent administration: Intravenous FASTING BLOOD SUGAR: 105 mg/dl CONTRAST TYPE AND DOSE: No CT contrast given. TECHNIQUE: Blood glucose level was verified. Above dose of FDG was injected intravenously. 2-D seg mented attenuation correction images were obtained from the base of the skull to the midthighs. Nonc ontrast CT images were obtained for attenuation correction and fusion with emission images. CT image s were performed without oral or intravenous contrast and are not sensitive for parenchymal lesions. A series of overlapping emission PET images were obtained. Images reviewed and manipulated at [facility] [place] work station by the radiologist. Images stored on PACS. LIMITATIONS: None. FINDINGS: HEAD AND NECK: No areas of abnormal metabolic activity in the soft tissues of the head and neck. CHEST: Chronic emphysematous changes with scarring and scattered bullae. 10 mm nodule in the right a pex unchanged on CT imaging. Slight increased activity with mean SUV 2.54. The 8 mm nodule in the a nterior right upper lobe demonstrates no abnormal activity. ABDOMEN AND PELVIS: Small focal area of increased activity on the left side of the prostate, with caroline n SUV value 4.26. No corresponding CT findings. No other areas of abnormal metabolic activity in th e abdomen or pelvis. Expected physiologic activity is present in the genitourinary system and bowel. PROXIMAL LOWER EXTREMITIES: No areas of abnormal metabolic activity in the soft tissues of the lower extremities. BONES: No abnormal metabolic activity in the visualized skeleton. ADDITIONAL CT FINDINGS: Small hyperdense cyst in the left kidney. Colonic diverticulosis. Chronic c hanges at the left ischial tuberosity. OTHER: No other significant findings. IMPRESSION: 1. CHRONIC EMPHYSEMATOUS CHANGES WITH SCARRING. SMALL NODULE IN THE RIGHT LUNG APEX DEMONSTRATES SLI GHTLY INCREASED ACTIVITY. THIS IS NONSPECIFIC AND COULD BE DUE TO INFLAMMATION ALTHOUGH MALIGNANT DE OCESS NOT ENTIRELY EXCLUDED. THE SMALL NODULE IN THE ANTERIOR RIGHT UPPER LOBE DEMONSTRATES NO ABNOR MAL ACTIVITY. 2. SMALL FOCAL AREA OF INCREASED ACTIVITY ON THE LEFT SIDE OF THE PROSTATE. THIS IS NONSPECIFIC AND COULD REPRESENT FOCAL PROSTATITIS ALTHOUGH MALIGNANT PROCESS NOT EXCLUDED. 3. NO OTHER SIGNIFICANT FINDINGS. INCIDENTAL CT FINDINGS ABOVE. TECHNICAL DOCUMENTATION: JOB ID: [id number] [employer]- All Rights Reserved
== END ==
LOC: RAD 09:22
PROVIDERS: ATTEND Internal Medicine Pulmonary Disease
DX: R91.1 Solitary pulmonary nodule (principal)
CPT/HCPCS: 78815; A9552

== ENCOUNTER → 2016-11-29 | Outpatient (CLI) | payer MEDICARE ==
[2016-11-29 12:54] LABS: ABSOLUTE BASOPHILS # (AUTO) 0.1 10^3/uL (0.0-0.2); ABSOLUTE EOSINOPHILS # (AUTO) 0.2 10^3/uL (0.0-0.6); ABSOLUTE LYMPHOCYTES (AUTO) 1.2 10^3/uL (0.5-4.7); ABSOLUTE MONOCYTES (AUTO) 1.2 10^3/uL (0.1-1.4); ABSOLUTE NEUT (AUTO) 10.3 10^3/uL (1.7-8.2); BASOPHILS % (AUTO) 0.5 % (0-2); EOSINOPHILS % (AUTO) 1.4 % (0-6); HEMATOCRIT 39.1 % (37.9-51.0); HEMOGLOBIN 13.2 g/dL (13.5-17.0); HGB HCT DIFFERENCE 0.5; LYMPHOCYTES % (AUTO) 9.3 % (13-45); MEAN CORPUSCULAR HEMOGLOBIN 29.7 pg (27.0-33.4); MEAN CORPUSCULAR HGB CONC 33.8 g/dL (32.0-36.0); MEAN CORPUSCULAR VOLUME 88 fl (80-97); MONOCYTES % (AUTO) 9.2 % (3-13); RED BLOOD COUNT 4.45 10^6/uL (4.35-5.55); RED CELL DISTRIBUTION WIDTH 14.4 % (11.5-14.0); SEGMENTED NEUTROPHILS % (AUTO) 79.6 % (42-78); WHITE BLOOD COUNT 12.9 10^3/uL (4.0-10.5)
== END ==
LOC: OD 11:11
PROVIDERS: ATTEND Internal Medicine Pulmonary Disease
DX: J44.9 Chronic obstructive pulmonary disease, unspecified (principal)
CPT/HCPCS: 36415; 85025

== ENCOUNTER → 2016-11-29 | Outpatient (CLI) | payer MEDICARE ==
--- NOTE | 2016-11-29 15:37 | RADIOLOGY REPORT (SQ) ---
EXAM DESCRIPTION: CHEST PA/LATERAL COMPLETED DATE/TIME: 11/29/2016 12:43 pm REASON FOR STUDY: CHRONIC OBSTRUCTIVE PULMONARY DISEASE, UNSPECIFIED COMPARISON: Chest films 08/24/2015, 08/14/2016 CT chest 09/30/2016 PET-CT 10/21/2016 EXAM PARAMETERS: NUMBER OF VIEWS: two views TECHNIQUE: Digital Frontal and Lateral radiographic views of the chest acquired. RADIATION DOSE: NA LIMITATIONS: none FINDINGS: LUNGS AND PLEURA: End-stage appearance of obstructive lung disease. Dense pleural-parench ymal scarring right apex unchanged. No acute infiltrates. No pleural effusion. No pneumothorax. MEDIASTINUM AND HILAR STRUCTURES: No masses or contour abnormalities. HEART AND VASCULAR STRUCTURES: Heart normal size. No evidence for failure. BONES: No acute findings. HARDWARE: None in the chest. OTHER: No other significant finding. IMPRESSION: Obstructive lung disease with stable right apical pleural-parenchymal scarring. TECHNICAL DOCUMENTATION: JOB ID: [id number] [employer]- All Rights Reserved
== END ==
LOC: OD 12:13
PROVIDERS: ATTEND Internal Medicine Pulmonary Disease
DX: J44.9 Chronic obstructive pulmonary disease, unspecified (principal)
CPT/HCPCS: 71020

== ENCOUNTER → 2017-04-24 | Outpatient (CLI) | payer MEDICARE ==
--- NOTE | 2017-04-24 15:30 | RADIOLOGY REPORT (SQ) ---
EXAM DESCRIPTION: CT CHEST WITHOUT COMPLETED DATE/TIME: 04/24/2017 1:03 pm REASON FOR STUDY: PULMONARY NODULES (R91.8) R91.8 OTHER NONSPECIFIC ABNORMAL FINDING OF LUNG FIELD COMPARISON: CT chest 06/30/2014, 10/31/2014, 07/24/2015, 09/30/2016 TECHNIQUE: CT scan performed of the chest without intravenous contrast. Images reviewed with lung, soft tissue and bone windows. Reconstructed coronal and sagittal MPR images reviewed. All images st ored on PACS. All CT scanners at this facility use dose modulation, iterative reconstruction, and/or weight based d osing when appropriate to reduce radiation dose to as low as reasonably achievable (ALARA). [facility]: Dose Right [facility]: CareDose [facility]: Dose Right [facility]: Teradose 4D [facility]: [employer] RADIATION DOSE: CT Rad equipment meets quality standard of care and radiation dose reduction techniq ues were employed. CTDIvol: 9.8 mGy. DLP: 415 mGy-cm. mGy. LIMITATIONS: No technical limitations. FINDINGS: LUNGS AND PLEURA: Stable appearance of the lungs and pleura compared to studies dating [facility] to 06/30/2014. Significant findings are as follows: End-stage appearance of obstructive lung disease with enlarged airspaces throughout both lungs Stable biapical bandlike pleural-parenchymal scarring Stable 9 mm smooth round nodule posterior right upper lobe Stable 2 cm smooth oval calcified pleural nodule posterior right upper lobe Stable 9 to 10 mm smooth round nodule anterior right middle lobe. No acute infiltrates. No pleural effusion. No pneumothorax. HILAR AND MEDIASTINAL STRUCTURES: No identified masses or abnormal nodes. No obvious aneurysm. HEART AND VASCULAR STRUCTURES: No aneurysm. No pericardial effusion. Moderate coronary artery calci fications UPPER ABDOMEN: No significant findings. Limited exam. THYROID AND OTHER SOFT TISSUES: No masses. No adenopathy. BONES: No significant finding. HARDWARE: None in the chest. OTHER: No other significant findings. IMPRESSION: Stable end-stage appearing obstructive lung disease, and postinflammatory biapical scarr ing, posterior right upper lobe and right middle lobe nodules TECHNICAL DOCUMENTATION: JOB ID: [id number] Quality ID # [id number]: Final reports with documentation of one or more dose reduction techniques (e.g., Au tomated exposure control, adjustment of the mA and/or kV according to patient size, use of iterative reconstruction technique) 2010 [employer]- All Rights Reserved
== END ==
LOC: RAD 12:43
PROVIDERS: ATTEND Internal Medicine Pulmonary Disease
DX: R91.8 Other nonspecific abnormal finding of lung field (principal); J44.9 Chronic obstructive pulmonary disease, unspecified
CPT/HCPCS: 71250

== ENCOUNTER → 2018-05-03 | Outpatient (CLI) | payer MEDICARE ==
--- NOTE | 2018-05-03 10:24 | RADIOLOGY REPORT (SQ) ---
EXAM DESCRIPTION: CT CHEST WITHOUT COMPLETED DATE/TIME: 05/03/2018 10:04 am REASON FOR STUDY: PULMONARY NODULES R91.8 OTHER NONSPECIFIC ABNORMAL FINDING OF LUNG FIELD COMPARISON: CT chest CT chest 06/30/2014, 07/24/2015, 09/30/2016, 04/24/2017 PET-CT 10/21/2016 TECHNIQUE: CT scan performed of the chest without intravenous contrast. Images reviewed with lung, soft tissue and bone windows. Reconstructed coronal and sagittal MPR images reviewed. All images st ored on PACS. All CT scanners at this facility use dose modulation, iterative reconstruction, and/or weight based d osing when appropriate to reduce radiation dose to as low as reasonably achievable (ALARA). [facility]: Dose Right [facility]: CareDose [facility]: Dose Right [facility]: Teradose 4D [facility]: [employer] RADIATION DOSE: CT Rad equipment meets quality standard of care and radiation dose reduction techniq ues were employed. CTDIvol: 8.8 mGy. DLP: 385 mGy-cm. mGy. LIMITATIONS: No technical limitations. FINDINGS: LUNGS AND PLEURA: End-stage appearance of obstructive lung disease. Right apical pleural-parenchymal scarring is present, stable compared to previous exams, with an rober cent 1.3 x 1 cm nodule on axial image 25 unchanged since 2015. A 9 mm smooth round subpleural nodule is present in the right middle lobe on axial image 68, unchange d from 2015. HILAR AND MEDIASTINAL STRUCTURES: No identified masses or abnormal nodes. No obvious aneurysm. HEART AND VASCULAR STRUCTURES: No aneurysm. No pericardial effusion. Moderate coronary artery calci fications UPPER ABDOMEN: No significant findings. Limited exam. THYROID AND OTHER SOFT TISSUES: No masses. No adenopathy. BONES: No significant finding. HARDWARE: None in the chest. OTHER: No other significant findings. IMPRESSION: End-stage appearance of obstructive lung disease. Stable right apical pleuroparenchymal scarring, right apical 1.3 x 1 cm nodule, stable right middle l obe 9 mm nodule compared to 2015. Consider 1 year follow-up screening low-dose chest CT. TECHNICAL DOCUMENTATION: JOB ID: [id number] Quality ID # [id number]: Final reports with documentation of one or more dose reduction techniques (e.g., Au tomated exposure control, adjustment of the mA and/or kV according to patient size, use of iterative reconstruction technique) 2010 [employer]- All Rights Reserved Reading location - IP/workstation name: [email or web address]
== END ==
LOC: RAD 16:04
PROVIDERS: ATTEND Internal Medicine Pulmonary Disease
DX: J44.9 Chronic obstructive pulmonary disease, unspecified (principal); R91.8 Other nonspecific abnormal finding of lung field
CPT/HCPCS: 71250

== ENCOUNTER 2018-05-11 10:13 | Emergency (ER) | payer MEDICARE ==
[2018-05-11 10:27] VITALS: BP 153/70
[2018-05-11] MEDS ORDERED: PREDNISONE 20 MG TABLET PO ONE (11:09)
[2018-05-11] MEDS ORDERED: IPRATROPIUM/ALBUTEROL 0.5-2.5 MG/3 ML AMPUL NEB ONE (11:09)
--- NOTE | 2018-05-11 11:09 | ER Document Report ---
ED General - General Chief Complaint: Shortness Of Breath Stated Complaint: SHORTNESS OF BREATH Time Seen by Provider: 05/11/18 10:54 Primary Care Provider: ISMAEL BARR MD [ACTIVE STAFF] - Follow up in 3-5 days Notes: Patient is a 77-year-old male with history of COPD that presents to the emergency department for chief complaint of cough and congestion. [] Past Medical History: [] Past Surgical History: [] Social History: [] Family History: Reviewed and noncontributory for presenting illness Allergies: Reviewed, see documented allergy list. REVIEW OF SYSTEMS: Other than noted above, the 12 point review of systems was reviewed with the patient and were negative, all pertinent findings are included in the HPI. PHYSICAL EXAMINATION: Vital signs reviewed, nursing noted reviewed. GENERAL: Well-appearing, well-nourished and in no acute distress. HEAD: Atraumatic, normocephalic. EYES: Eyes appear normal, extraocular movements intact, sclera anicteric, conjunctiva are normal. ENT: nares patent, oropharynx clear without exudates. Moist mucous membranes. NECK: Normal range of motion, supple without lymphadenopathy LUNGS: Diffuse expiratory wheezing noted on exam, no acute respiratory distress HEART: Regular rate and rhythm without murmurs ABDOMEN: Soft, nontender, normoactive bowel sounds. No rebound, guarding, or rigidity. No masses appreciated. EXTREMITIES: Nontender, good range of motion, no pitting or edema. NEUROLOGICAL: No focal neurological deficits. Moves all extremities spontaneously Motor and sensory grossly intact on exam. PSYCH: Normal mood, normal affect. SKIN: Warm, Dry, normal turgor, no rashes or lesions noted on exposed skin TRAVEL OUTSIDE OF THE [place] IN LAST 30 DAYS: No - Related Data Allergies/Adverse Reactions: Penicillins Allergy (Unknown, Verified 05/11/18 10:16) Past Medical History - Social History Smoking Status: Unknown if Ever Smoked Family History: CAD Patient has suicidal ideation: No Patient has homicidal ideation: No - Past Medical History Cardiac Medical History: Reports: Hx Hypercholesterolemia, Hx Hypertension Denies: Hx Heart Attack Pulmonary Medical History: Reports: Hx Asthma - COPD, Hx COPD, Hx Pneumonia Neurological Medical History: Denies: Hx Cerebrovascular Accident, Hx Seizures Renal/ Medical History: Denies: Hx Peritoneal Dialysis GI Medical History: Denies: Hx Hepatitis, Hx Hiatal Hernia, Hx Ulcer Infectious Medical History: Denies: Hx Hepatitis Past Surgical History: Denies: Hx Open Heart Surgery, Hx Pacemaker Physical Exam - Vital signs Vitals: Temp Pulse Resp BP Pulse Ox 98.3 F 95 20 153/70 H 97 05/11/18 10:24 05/11/18 10:24 05/11/18 10:24 05/11/18 10:24 05/11/18 10:24 Course - Vital Signs Vital signs: Temp Pulse Resp BP Pulse Ox 98.3 F 95 20 153/70 H 97 05/11/18 10:24 05/11/18 10:24 05/11/18 10:24 05/11/18 10:24 05/11/18 10:24 Discharge - Discharge Clinical Impression: Acute exacerbation of chronic obstructive pulmonary disease (COPD), Cough Condition: Stable Disposition: HOME, SELF-CARE Instructions: Chronic Obstructive Lung Disease ([facility]) Additional Instructions: Please use Flonase, 1 spray twice daily for the next week, and then once daily afterwards, continue to use your albuterol inhaler or breathing treatments, every 4-6 hours, at least 4 times daily for the next 5 days, please complete the entire course of antibiotics and the steroids provided. And follow-up with your primary care physician. Prescriptions: RX: Doxycycline Hyclate 100 mg PO BID #14 capsule RX: Prednisone [Deltasone 20 mg Tablet] 3 tab PO DAILY 4 Days #12 tablet Referrals: ISMAEL BARR MD [ACTIVE STAFF] - Follow up in 3-5 days
== END 2018-05-11 12:04 | disposition home or self-care (01) ==
LOC: ER 10:13
DX: J44.1 Chronic obstructive pulmonary disease with (acute) exacerbation (principal); R06.2 Wheezing; I10 Essential (primary) hypertension
CPT/HCPCS: 94640; 99283; A9270 ×2; J7512; J7620

== ENCOUNTER → 2019-05-06 | Outpatient (CLI) | payer MEDICARE ==
--- NOTE | 2019-05-06 14:21 | RADIOLOGY REPORT (SQ) ---
EXAM DESCRIPTION: CT CHEST WITHOUT COMPLETED DATE/TIME: 05/06/2019 9:56 am REASON FOR STUDY: SOLITARY PULMONARY NODULE (R91.1) R91.1 SOLITARY PULMONARY NODULE COMPARISON: 05/03/2018 TECHNIQUE: CT scan performed of the chest without intravenous contrast. Images reviewed with lung, soft tissue and bone windows. Reconstructed coronal and sagittal MPR images reviewed. All images st ored on PACS. All CT scanners at this facility use dose modulation, iterative reconstruction, and/or weight based d osing when appropriate to reduce radiation dose to as low as reasonably achievable (ALARA). [facility]: Dose Right [facility]: CareDose [facility]: Dose Right [facility]: Teradose 4D [facility]: [employer] RADIATION DOSE: CT Rad equipment meets quality standard of care and radiation dose reduction techniq ues were employed. CTDIvol: 8.1 mGy. DLP: 354 mGy-cm. mGy. LIMITATIONS: No technical limitations. FINDINGS: LUNGS AND PLEURA: Emphysematous changes with some prominent bullae. Stable right upper lo be pulmonary nodule measures 10.6 x 7.1 mm on image 23. Stable pleural/ parenchymal scarring in the right upper lobe posteriorly. Stable 8.5 mm nodule in the medial aspect of the right middle lobe. HILAR AND MEDIASTINAL STRUCTURES: No identified masses or abnormal nodes. No obvious aneurysm. HEART AND VASCULAR STRUCTURES: No aneurysm. No pericardial effusion. UPPER ABDOMEN: No significant findings. Limited exam. THYROID AND OTHER SOFT TISSUES: No masses. No adenopathy. BONES: No significant finding. HARDWARE: None in the chest. OTHER: No other significant findings. IMPRESSION: Pulmonary emphysema with chronic scarring in the right upper lobe. Stable pulmonary nod ules. TECHNICAL DOCUMENTATION: JOB ID: [id number] Quality ID # [id number]: Final reports with documentation of one or more dose reduction techniques (e.g., Au tomated exposure control, adjustment of the mA and/or kV according to patient size, use of iterative reconstruction technique) 2010 [employer]- All Rights Reserved Reading location - IP/workstation name: [email or web address]
== END ==
LOC: RAD 09:45
PROVIDERS: ATTEND Registered Nurse
DX: R91.1 Solitary pulmonary nodule (principal); J43.9 Emphysema, unspecified
CPT/HCPCS: 71250

== ENCOUNTER 2020-04-16 10:34 | Emergency (ER) | payer MEDICARE ==
[2020-04-16] MEDS ORDERED: IPRATROPIUM/ALBUTEROL 0.5-2.5 MG/3 ML AMPUL NEB ONE (11:53)
--- NOTE | 2020-04-16 12:01 | ER Document Report ---
Entered by NICK UMANZOR SCRIBE 04/16/20 1126 Acting as scribe for:AUDREY OLEARY MD ED Respiratory Problem - General Chief Complaint: Shortness Of Breath Stated Complaint: SHORT OF BREATH Time Seen by Provider: 04/16/20 11:25 Primary Care Provider: MYNOR MOLINA FNP-C [ALLIED HEALTH PROFESSIONAL] - Follow up as needed Mode of Arrival: Ambulatory Information source: Patient Notes: This 79 year old male patient with history of COPD presents to the ED today with complaints of shortness of breath with exertion and sinus congestion/drainage for the past x3 weeks. Patient states that he uses home O2 PRN and when he is sleeping. He notes positive contact on 04/12 with his daughter who tested positive for COVID on 04/14. Denies fever, cough, loss of taste/smell. He did receive a flu shot this season. TRAVEL OUTSIDE OF THE [place] IN LAST 30 DAYS: No - Related Data Allergies/Adverse Reactions: Penicillins Allergy (Unknown, Verified 04/16/20 11:40) Past Medical History - General Information source: Patient, [facility] Records - Social History Smoking Status: Former Smoker Cigarette use (# per day): No Chew tobacco use (# tins/day): No Smoking Education Provided: No Family History: Reviewed & Not Pertinent, CAD - Past Medical History Cardiac Medical History: Reports: Hx Hypercholesterolemia, Hx Hypertension Pulmonary Medical History: Reports: Hx Asthma, Hx COPD, Hx Pneumonia Review of Systems - Review of Systems Constitutional: See HPI. denies: Fever EENT: See HPI, Sinus discharge - and congestion. denies: Other - Loss of taste/smell Cardiovascular: No symptoms reported Respiratory: See HPI, Short of breath. denies: Cough Gastrointestinal: No symptoms reported Genitourinary: No symptoms reported Male Genitourinary: No symptoms reported Musculoskeletal: No symptoms reported Skin: No symptoms reported Hematologic/Lymphatic: No symptoms reported Neurological/Psychological: No symptoms reported -: Yes All other systems reviewed and negative Physical Exam - Vital signs Vitals: Temp Pulse Resp BP Pulse Ox 98.0 F 108 H 22 H 140/93 H 95 04/16/20 10:39 04/16/20 10:39 04/16/20 10:39 04/16/20 10:39 04/16/20 10:39 - General General appearance: Alert In distress: None - HEENT Head: Normocephalic, Atraumatic Eyes: Normal Pupils: PERRL - Respiratory Respiratory status: No respiratory distress Chest status: Nontender Breath sounds: Wheezing - Scant wheezing. No: Rhonchi Chest palpation: Normal - Cardiovascular Rhythm: Regular Heart sounds: Normal auscultation Murmur: No - Abdominal Inspection: Normal Distension: No distension Bowel sounds: Normal Tenderness: Nontender - Abdomen soft Organomegaly: No organomegaly - Back Back: Normal, Nontender - Extremities General upper extremity: Normal inspection General lower extremity: Normal inspection. No: Edema - Neurological Neuro grossly intact: Yes Orientation: AAOx4 [place] Coma Scale Eye Opening: Spontaneous Mark Coma Scale Verbal: Oriented Mark Coma Scale Motor: Obeys Commands [place] Coma Scale Total: 15 - Psychological Associated symptoms: Normal affect, Normal mood - Skin Skin Temperature: Warm Skin Moisture: Dry Skin Color: Normal Course - Re-evaluation Re-evalutation: 04/16/20 12:01 The patient was evaluated during the global COVID-19 pandemic and that diagnosis was suspected/considered upon their initial presentation. Their evaluation, treatment and testing was consistent with current guidelines for patients who present with complaints or symptoms that may be related to COVID-19. 04/16/20 13:28 Patient's Covid test is positive. - Vital Signs Vital signs: Temp Pulse Resp BP Pulse Ox 98.0 F 98 18 138/88 H 96 04/16/20 10:39 04/16/20 15:22 04/16/20 15:22 04/16/20 15:22 04/16/20 15:22 - Laboratory Results Result Diagrams: 04/16/20 11:56 04/16/20 11:56 Laboratory Results Interpreted: 04/16/20 04/16/20 04/16/20 11:56 11:56 12:18 Lymph % (Auto) 10.6 L BUN 29 H Creatinine 1.35 H Est GFR (MDRD) Non-Af 51 L Glucose 117 H Total Protein 8.7 H Albumin 5.2 H Urine Protein Urine Ketones Ur Leukocyte Esterase SARS-CoV-2 (PCR) DETECTED H 04/16/20 14:12 Lymph % (Auto) BUN Creatinine Est GFR (MDRD) Non-Af Glucose Total Protein Albumin Urine Protein 30 H Urine Ketones TRACE H Ur Leukocyte Esterase TRACE H SARS-CoV-2 (PCR) Critical Laboratory Results Reviewed: Yes - Covid positive Attending or Supervising Physician who Reviewed Labs: AUDREY OLEARY - Radiology Results Radiology Results Interpreted: 04/16/20 13:26 Chest x-ray shows asymmetric appearance of interstitial markings which may be due to in part to asymmetric emphysematous changes. Superimposed airspace process is not entirely excluded. Critical Radiology Results Reviewed: No Critical Results - EKG Interpretation by Me EKG shows normal: abnormal: QRS Complexes - Borderline R wave progression in the anterior leads, ST-T Waves - Borderline T abnormalities in the anterior lateral leads Rate: Normal - 93 Rhythm: NSR When compared to previous EKG there are: No significant change Discharge - Discharge Clinical Impression: Pneumonia due to 2019-nCoV, Dyspnea on exertion Emphysema of lung Qualifiers: Emphysema type: unspecified Qualified Code(s): J43.9 - Emphysema, unspecified Condition: Stable Disposition: HOME, SELF-CARE Additional Instructions: Your testing today shows that you do have the COVID-19 infection. Your chest x-ray suggest that you may be developing a Covid pneumonia. Take the prednisone as prescribed, start tomorrow as you have had today's dose here in the emergency room. Continue your regular COPD medications. Drink plenty of fluids and get plenty of rest. Self isolate to try to prevent spreading the illness. The following vitamins have been shown to be beneficial in COVID-19 infection: Vitamin C 500 mg twice daily, and Quercetin 250 mg twice daily. Zinc 100 mg daily. Melatonin 10 mg at night. Vitamin D 2000 international units daily. Take 1 baby aspirin daily. Take Pepcid 40 mg twice daily. Return to the emergency room if you find your pulse oximetry readings are going below 90% on 2 L nasal cannula oxygen. RETURN TO THE EMERGENCY ROOM IF ANY NEW OR WORSENING SYMPTOMS. Prescriptions: Prednisone [Deltasone 20 mg Tablet] 40 mg PO DAILY #10 tablet Referrals: MYNOR MOLINA FNP-C [ALLIED HEALTH PROFESSIONAL] - Follow up as needed I personally performed the services described in the documentation, reviewed and edited the documentation which was dictated to the scribe in my presence, and it accurately records my words and actions.
[2020-04-16 12:20] LABS: ABSOLUTE EOSINOPHILS # (AUTO) 0.1 10^3/uL (0.0-0.6); ABSOLUTE LYMPHOCYTES (AUTO) 0.8 10^3/uL (0.5-4.7); ABSOLUTE MONOCYTES (AUTO) 0.9 10^3/uL (0.1-1.4); ABSOLUTE NEUT (AUTO) 5.9 10^3/uL (1.7-8.2); BASOPHILS % (AUTO) 0.6 % (0-2); EOSINOPHILS % (AUTO) 1.8 % (0-6); HEMATOCRIT 44.2 % (37.9-51.0); HEMOGLOBIN 14.6 g/dL (13.5-17.0); LYMPHOCYTES % (AUTO) 10.6 % (13-45); MEAN CORPUSCULAR HEMOGLOBIN 29.2 pg (27.0-33.4); MEAN CORPUSCULAR HGB CONC 33.1 g/dL (32.0-36.0); MEAN CORPUSCULAR VOLUME 88 fl (80-97); MONOCYTES % (AUTO) 11.6 % (3-13); PLATELET COUNT 229 10^3/uL (150-450); RED BLOOD COUNT 5.01 10^6/uL (4.35-5.55); RED CELL DISTRIBUTION WIDTH 13.9 % (11.5-14.0); SEGMENTED NEUTROPHILS % (AUTO) 75.4 % (42-78); TOTAL CELLS COUNTED % (AUTO) 100 %; WHITE BLOOD COUNT 7.8 10^3/uL (4.0-10.5)
[2020-04-16 12:43] LABS: ALBUMIN 5.2 g/dL (3.5-5.0); ALKALINE PHOSPHATASE 82 U/L (38-126); ANION GAP 12 (5-19); ASPARTATE AMINO TRANSFERASE 43 U/L (17-59); BILIRUBIN,DIRECT 0.4 mg/dL (0.0-0.4); BILIRUBIN,TOTAL 0.8 mg/dL (0.2-1.3); BLOOD UREA NITROGEN 29 mg/dL (7-20); CARBON DIOXIDE 29 mmol/L (22-30); CHLORIDE 100 mmol/L (98-107); CREATINE KINASE 66 U/L (55-170); GLUCOSE 117 mg/dL (75-110); POTASSIUM 4.9 mmol/L (3.6-5.0); TOTAL PROTEIN 8.7 g/dL (6.3-8.2)
[2020-04-16 12:46] LABS: NT PRO BNP 211 pg/mL (<450)
[2020-04-16 12:47] LABS: TROPONIN I < 0.012 ng/mL
--- NOTE | 2020-04-16 13:01 | RADIOLOGY REPORT (SQ) ---
EXAM DESCRIPTION: CHEST SINGLE VIEW IMAGES COMPLETED DATE/TIME: 04/16/2020 12:30 pm REASON FOR STUDY: Worsening dyspnea on exertion x3 weeks, COPD COMPARISON: 11/29/2016 and 05/06/2019 EXAM PARAMETERS: NUMBER OF VIEWS: One view. TECHNIQUE: Single frontal radiographic view of the chest acquired. RADIATION DOSE: NA LIMITATIONS: None. FINDINGS: LUNGS AND PLEURA: Hyper aeration with flattening of the hemidiaphragms and blood vessel at tenuation, consistent with emphysematous change. Asymmetrically increased interstitial markings invo lving the left lung. No pleural effusion. No discrete pneumothorax. MEDIASTINUM AND HILAR STRUCTURES: No masses. Contour normal. HEART AND VASCULAR STRUCTURES: Heart normal in size. Normal vasculature. BONES: No acute findings. HARDWARE: None in the chest. OTHER: No other significant finding. IMPRESSION: Asymmetric appearance of interstitial markings may be due in part to asymmetric emphysem atous changes. A superimposed airspace process is not entirely excluded. Consider further character ization with noncontrast chest CT. TECHNICAL DOCUMENTATION: JOB ID: [id number] 2010 [employer]- All Rights Reserved Reading location - IP/workstation name: [email or web address]
[2020-04-16] MEDS ORDERED: ALBUTEROL SULFATE 0.083% NEB 2.5 MG/3 ML AMPUL NEB ONE (13:05)
[2020-04-16] MEDS ORDERED: PREDNISONE 20 MG TABLET PO ONE (13:05)
[2020-04-16 14:29] LABS: APPEARANCE,URINE SLIGHTLY-CLOUDY; BILIRUBIN,URINE NEGATIVE (NEGATIVE); GLUCOSE, URINE NEGATIVE (NEGATIVE); KETONES,URINE TRACE mg/dL (NEGATIVE); LEUKOCYTE ESTERASE,URINE TRACE (NEGATIVE); NITRITE,URINE NEGATIVE (NEGATIVE); PROTEIN,URINE 30 mg/dL (NEGATIVE); URINE SPECIFIC GRAVITY 1.021; UROBILINOGEN,URINE NEGATIVE mg/dL (<2.0)
[2020-04-16 14:30] LABS: COLOR,URINE DARK YELLOW
[2020-04-16] MEDS ORDERED: NORMAL SALINE 250 ML IV PRN ×2 (15:05)
[2020-04-16 15:23] VITALS: BP 138/88
--- NOTE | 2020-04-17 19:41 | EKG REPORT ---
SEVERITY:- BORDERLINE ECG - SINUS RHYTHM BORDERLINE R WAVE PROGRESSION, ANTERIOR LEADS BORDERLINE T ABNORMALITIES, ANT-LAT LEADS : Confirmed by: Fabricio Girard MD 17-Apr-2020 19:40:32
== END 2020-04-16 15:15 | disposition home or self-care (01) ==
LOC: ER 10:34
DX: U07.1 COVID-19 (principal); J12.82 Pneumonia due to coronavirus disease 2019; J43.9 Emphysema, unspecified; I10 Essential (primary) hypertension; Z87.891 Personal history of nicotine dependence
CPT/HCPCS: 93005; 94640 ×2; 99285; 36415; 82550; 85025; 0202U; 80053; 81001; 84484; 85379; 83880; 71045; 93010; A9270 ×2; C9803; J7512; J7613